=== PATIENT | female | born 1965 | race Asian ===

== ENCOUNTER 2024-10-07 21:47 | Emergency (ER) | payer BC ==
[~2024-10-07] VITALS: Ht 162.6 cm; Wt 60.0 kg
[2024-10-07] MEDS ORDERED: ACETAMINOPHEN 325MG TABLET PO ONE (22:30)
[2024-10-07 22:34] VITALS: O2SAT 96
[2024-10-08] MEDS ORDERED: ACET-2708 MT (00:47)
[2024-10-08 02:37] VITALS: BP 142/95; PULSE 90; RESP 18; TEMP 36.72516; O2SAT 98
== END 2024-10-08 02:40 | disposition home or self-care (01) ==
LOC: ER 22:17
DX: M25.512 Pain in left shoulder (principal); M25.562 Pain in left knee; M25.561 Pain in right knee; I25.10 Atherosclerotic heart disease of native coronary artery without angina pectoris; V89.2XXA Person injured in unspecified motor-vehicle accident, traffic, initial encounter; Y93.89 Activity, other specified; Y92.89 Other specified places as the place of occurrence of the external cause; Y99.8 Other external cause status
CPT/HCPCS: 71045; 73030; 73080; 73560; 99284